=== PATIENT | male | born 1940 | race Caucasian/White ===

== ENCOUNTER 2017-06-14 11:14 | Emergency (ER) | payer MEDICARE, OTHER ==
[2017-06-14] MEDS ORDERED: Isosorbide Mononitrate 30 MG Tab.ER PO SCH (13:00)
[2017-06-14 13:04] VITALS: BP 153/42
--- NOTE | 2017-06-15 13:19 | CR ---
INDICATION: Chest pain. CHEST: A single AP upright portable view of the chest was obtained 06/14/2017 and compared with 03/13/2016, revealing the heart to appear somewhat prominent in size, but not grossly enlarged. The aorta is calcified in the arch area. Overlying EKG leads are noted. The lungs appear to be somewhat hyperaerated, suggesting the possibility of osteoporosis - correlate clinically. An active infiltrate or effusion was not identified. Dextroconvex scoliosis of moderate degree is noted, appearing slightly more prominent. IMPRESSION: No acute process. Multiple findings as noted above. MTDD
--- NOTE | 2017-06-16 10:24 | ER ---
DATE SEEN: 06/14/2017 TIME SEEN: The patient was seen at 1130 hours. CHIEF COMPLAINT: Chest pain. 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 It was "hard pain", "pushing pain". "It was not a pain." Associated with shortness of breath, he gets dyspnea on walking one quarter mile. He still smokes half a pack of cigarettes a day, and he has a baseline cough associated with this. He is allergic to lisinopril but takes an JANINA receptor josephine satisfactorily. The patient denies pain presently. Pain was 8/10 in intensity at home, which relented after less than half hour. CURRENT MEDICATIONS: 1. Lipitor 10 mg at bedtime. 2. Amlodipine 2.5 mg daily. 3. Losartan 100 mg at bedtime. 4. Cholecalciferol vitamin D 5000 units daily. 5. Acetaminophen and hydrocodone 325/5. ALLERGIES: Lisinopril. FAMILY HISTORY: Mother age 87 with a myocardial infarction. Father age 58 with hepatitis. Brother of lymphoma at age 60. Sister alive and well. Another sister has cancer of the liver, and I believe she is still living. REVIEW OF SYSTEMS: Negative, except for the chest pain noted above. Denies headache, neck stiffness, sore throat, recent fevers. His cough is unchanged. CARDIORESPIRATORY: As above. Denies syncope near syncope, palpitations, abdominal pain, nausea, vomiting, diaphoresis. Denies blood in his stool, black tarry stool, diarrhea, constipation. Prostatism, he has mild prostatism, has nocturia x2. Otherwise stable. No previous prostate surgery. EXTREMITIES: Without abnormality. No arthritis. No decreased muscle strength. NEURO: Negative for seizure, head injury, or headaches. PHYSICAL EXAMINATION: VITAL SIGNS: Blood pressure 190/51, this was repeated 153/42; heart rate 63 and regular; respirations 18; oxygen saturation 99%. The patient's BMI is 21.1 kg/m2, 67.132 kg. GENERAL: Edentulous, unshaven, pleasant fellow with 40+ pack year cigarette use in his lifetime and loss of angularity in his jaw because of jaw recession with the absence of teeth. He is alert and not complaining of chest pain. No diaphoresis. HEENT: TMs negative. Hearing decreased. PERRLA intact. Pharynx without abnormality, except for absent teeth. NECK: No thyromegaly, masses, or bruits. No tenderness. LUNGS: Clear to auscultation except for the bases few rales. HEART: S1, S2. No murmur. No irregular rate and rhythm. ABDOMEN: Soft. No guarding. No abdominal discomfort. Bowel sounds normal. No CVA percussion discomfort. BACK: Minimal spinous process tenderness in the lumbar spine. EXTREMITIES: Straight leg raise is negative. Deep tendon reflexes, knee jerks and ankle jerks 1+ active. NEUROLOGICAL: Cranial nerves 2 through 12 intact. LABORATORY DATA: Troponin was performed as well as other lab work and troponin was less than 0.01. D-dimer was slightly elevated, but not elevated for his age. By "Rule of Ten" normal could be 750, and his D-dimer is 572. Sodium is 134, potassium 4.9, chloride 107, bicarb is 19, BUN 33, creatinine 1.8. GFR is 42. BUN and creatinine ratio show slight suggestion of dehydration at 20.6. Hemoglobin is 10.2 and white count 8000, PMNs 66, lymphocytes 24, monos 7. Platelets 222,000. DIAGNOSTIC DATA: Chest x-ray, chronic obstructive lung disease. No pneumonia. No infiltrate noted. No cardiomegaly. EKG, occasional PACs (probably secondary to smoking, chronic obstructive lung disease). No arrhythmias, no ST elevation, no ST changes. ASSESSMENT: 1. Stable angina. 2. Smoking abuse. PLAN: Dismissed. Follow up with doctor in a week. Start Imdur 30 mg daily. No changes in his activity. Discontinue smoking. He is given NicoDerm patch, Chantix take daily plus Nicorette tic tac - greater rate of abstinence together than if only one taken. He is to take one before getting out of bed in the morning. /[id number] 2003 JANICE/CHIO SALDIVARD
== END 2017-06-14 13:00 | disposition home or self-care (01) ==
LOC: FB.ED 11:14
DX: I20.8 Other forms of angina pectoris (principal); F17.210 Nicotine dependence, cigarettes, uncomplicated; Z79.899 Other long term (current) drug therapy; Z88.8 Allergy status to other drugs, medicaments and biological substances
CPT/HCPCS: 36415; 71010; 80053; 82550; 84484; 85025; 85379; 93005; 99285; A9270; 99284

== ENCOUNTER 2018-01-20 23:22 | Emergency (ER) | payer MEDICARE, OTHER ==
[2018-01-20] MEDS ORDERED: Morphine 2 MG/ML Syringe IVPUSH ONE (23:37)
[2018-01-20] MEDS ORDERED: Morphine 10 MG/ML Syringe IVPUSH ONE (23:41)
--- NOTE | 2018-01-20 23:42 | EDM.PDOC ---
ED HPI GENERAL MEDICAL PROBLEM - General Chief Complaint: Abdominal Pain Stated Complaint: ABD PAIN Time Seen by Provider: 01/20/18 23:37 Source of Information: Reports: Patient History Limitations: Reports: No Limitations - History of Present Illness Onset: Today Duration: Hour(s): (2) Location: Reports: Abdomen Quality: Reports: Ache Severity: Moderate Improves with: Reports: None Worsens with: Reports: None Associated Symptoms: Reports: No Other Symptoms lower abdomen Pain Score (Numeric/FACES): 10 - Related Data Allergies Allergy/AdvReac Type Severity Reaction Status Date / Time hydrocodone Allergy Vomiting Verified 01/21/18 00:29 tramadol Allergy Vomiting Verified 01/21/18 00:27 lisinopril AdvReac Vomiting Verified 01/21/18 00:29 Home Meds: Home Meds Aspirin 81 mg PO BEDTIME 03/12/16 [History] Losartan [Cozaar] 100 mg PO DAILY 03/12/16 [History] atorvaSTATin [Lipitor] 40 mg PO DAILY 03/12/16 [History] Cholecalciferol (Vitamin D3) [Vitamin D3] 5,000 unit PO DAILY 08/28/16 [History] amLODIPine [Norvasc] 2.5 mg PO BEDTIME 08/28/16 [History] Nicotine Polacrilex [Nicorette] 4 mg BC ASDIRECTED #100 gum 06/14/17 [Rx] Metoprolol Succinate [Toprol XL] 25 mg PO DAILY 01/21/18 [History] Past Medical History HEENT History: Reports: Impaired Vision Other HEENT History: waers glasses Cardiovascular History: Reports: Bypass, Hypertension, Other (See Below) ( Aortic stenosis) Other Cardiovascular History: BILAT CAROTID ARTERY STENOSIS Gastrointestinal History: Reports: Pancreatitis Genitourinary History: Reports: Other (See Below) Other Genitourinary History: slow to start stream at times Musculoskeletal History: Reports: Fracture Neurological History: Reports: Concussion Oncologic (Cancer) History: Reports: Malignant Melanoma Dermatologic History: Reports: Melanoma Other Dermatologic History: MELANOMA TO EAR - Infectious Disease History Infectious Disease History: Reports: Chicken Pox, Measles, Mumps, Shingles - Past Surgical History HEENT Surgical History: Reports: Oral Surgery Cardiovascular Surgical History: Reports: Coronary Artery Bypass GI Surgical History: Reports: Appendectomy, Hernia, Inguinal, Hernia Repair/ Other Neurological Surgical History: Reports: None Dermatological Surgical History: Reports: Other (See Below) Social & Family History - Family History Family Medical History: Noncontributory Cardiac: Reports: [place] (mother) GI: Reports: Hepatitis (father) Oncologic: Reports: Colon (sister), Lymphoma (brother) - Tobacco Use Smoking Status *Q: Current Every Day Smoker Tobacco Use Within Last Twelve Months: Cigarettes - Caffeine Use Caffeine Use: Reports: Coffee - Alcohol Use Alcohol Use History: No Alcohol Use in Last Twelve Months: No ED ROS GENERAL - Review of Systems Review Of Systems: See Below Constitutional: Reports: No Symptoms HEENT: Reports: No Symptoms Respiratory: Reports: No Symptoms Cardiovascular: Reports: No Symptoms Endocrine: Reports: No Symptoms GI/Abdominal: Reports: Abdominal Pain (lower). Denies: Black Stool, Bloody Stool, Constipation, Diarrhea, Distension, Hematemesis, Hematochezia, Melena, Nausea, Vomiting : Reports: No Symptoms Musculoskeletal: Reports: No Symptoms Skin: Reports: No Symptoms Neurological: Reports: No Symptoms Psychiatric: Reports: No Symptoms Hematologic/Lymphatic: Reports: No Symptoms Immunologic: Reports: No Symptoms ED EXAM, GI/ABD - Physical Exam Exam: See Below Exam Limited By: No Limitations General Appearance: Alert, WD/WN, No Apparent Distress Ears: Normal External Exam Throat/Mouth: No Airway Compromise Head: Atraumatic, Normocephalic Neck: Normal Inspection Respiratory/Chest: No Respiratory Distress, Lungs Clear, Normal Breath Sounds Cardiovascular: Regular Rate, Rhythm, No Edema, Systolic Murmur (3/6) GI/Abdominal Exam: Normal Bowel Sounds, Soft, No Organomegaly, No Distention, No Mass, Tender (suprapubic) Rectal (Males) Exam: Deferred Extremities: Normal Range of Motion Neurological: Alert, Oriented, Normal Cognition, Normal Gait Psychiatric: Normal Affect Skin Exam: Warm, Dry, Intact, Normal Color, No Rash Course - Vital Signs Last Recorded V/S: Last Vital Signs Temp 36.9 C 01/20/18 23:25 Pulse 61 01/20/18 23:25 Resp 16 01/20/18 23:25 BP 156/45 H 01/20/18 23:25 Pulse Ox 100 01/20/18 23:25 - Orders/Labs/Meds Orders: Active Orders 24 hr Category Date Time Status Abdomen Pelvis wo Cont [CT] Stat Exams 01/21/18 01:00 Taken UA W/MICROSCOPIC [URIN] Stat Lab 01/21/18 01:20 Ordered Sodium Chloride 0.9% [Normal Saline] 1,000 ml Med 01/20/18 23:45 Active IV ASDIRECTED Medication Orders Sodium Chloride (Normal Saline) 1,000 mls @ 100 mls/hr IV ASDIRECTED INES Last Admin: 01/20/18 23:55 Dose: 100 mls/hr Labs: Laboratory Tests 01/20/18 01/20/18 01/21/18 Range/Units 23:52 23:52 01:20 WBC 9.5 (4.5-12.0) X10-3/uL RBC 2.82 L (4.30-5.75) x10(6)uL Hgb 9.1 L (11.5-15.5) g/dL Hct 27.3 L (30.0-51.3) % MCV 96.7 H (80-96) fL MCH 32.3 (27.7-33.6) pg MCHC 33.4 (32.2-35.4) g/dL RDW 14.6 (11.5-15.5) % Plt Count 168 (125-369) X10(3)uL MPV 8.6 (7.4-10.4) fL Neut % (Auto) 71.9 (46-82) % Lymph % (Auto) 16.3 (13-37) % [place] % (Auto) 8.9 (4-12) % Eos % (Auto) 2 (1.0-5.0) % Baso % (Auto) 1 (0-2) % Neut # (Auto) 6.8 (1.6-8.3) # Lymph # (Auto) 1.6 (0.6-5.0) # [place] # (Auto) 0.8 (0.0-1.3) # Eos # (Auto) 0.2 (0.0-0.8) # Baso # (Auto) 0.1 (0.0-0.2) # Sodium 139 (135-145) mmol/L Potassium 5.2 (3.5-5.3) mmol/L Chloride 107 (100-110) mmol/L Carbon Dioxide 19 L (21-32) mmol/L BUN 34 H (7-18) mg/dL Creatinine 1.5 H (0.70-1.30) mg/dL Est Cr Clr Drug Dosing TNP Estimated GFR (MDRD) 46 L (>60) BUN/Creatinine Ratio 22.7 H (9-20) Glucose 110 (80-116) mg/dL Calcium 8.7 (8.6-10.2) mg/dL Total Bilirubin 0.4 (0.1-1.3) mg/dL AST 19 (5-25) IU/L ALT 30 (12-36) U/L Alkaline Phosphatase 86 (56-112) IU/L Total Protein 7.0 (6.0-8.0) g/dL Albumin 3.5 (3.2-4.6) g/dL Globulin 3.5 g/dL Albumin/Globulin Ratio 1.0 Urine Color Yellow (YELLOW) Urine Appearance Clear (CLEAR) Urine pH 5.0 (5.0-6.5) Ur Specific [place] 1.020 (1.010-1.025) Urine Protein 30 H (NEGATIVE) mg/dL Urine Glucose (UA) Normal (NEGATIVE) mg/dL Urine Ketones Negative (NEGATIVE) mg/dL Urine Occult Blood Negative (NEGATIVE) Urine Nitrite Negative (NEGATIVE) Urine Bilirubin Negative (NEGATIVE) Urine Urobilinogen Normal (NEGATIVE) mg/dL Ur Leukocyte Esterase Negative (NEGATIVE) Urine RBC 0-5 (0) Urine WBC 0-5 (0) Ur Squamous Epith Cells Occasional (NS,R,O) Urine Bacteria Few H (NS) Meds: Medications Generic Name Dose Route Start Last Admin Trade Name Freq PRN Reason Stop Dose Admin Sodium Chloride 1,000 mls @ 100 mls/hr 01/20/18 23:45 01/20/18 23:55 Normal Saline IV 100 mls/hr ASDIRECTED INES Administration Discontinued Medications Generic Name Dose Route Start Last Admin Trade Name Freq PRN Reason Stop Dose Admin Iopamidol 75 ml 01/21/18 00:46 01/21/18 01:07 Isovue-370 (76%) IV 01/21/18 00:47 Not Given ONETIME ONE Morphine Sulfate 2 mg 01/20/18 23:37 01/21/18 00:06 Morphine IVPUSH 01/20/18 23:38 Not Given ONETIME ONE Morphine Sulfate 2 mg 01/20/18 23:41 01/21/18 00:05 Morphine IVPUSH 01/20/18 23:42 2 mg ONETIME ONE Administration - Radiology Interpretation Free Text/Narrative:: CT Abd/Pelvis w/o contrast: Vhrjyjaw-rl-eofgt amount stool present throughout colon. Moderate enlargement of prostate. Chronic pancreatitis. Right adrenal nodule. - Re-Assessments/Exams Free Text/Narrative Re-Assessment/Exam: 01/21/18 02:08 Pain has improved Departure - Departure Time of Disposition: 02:10 Disposition: Home, Self-Care 01 Condition: Good Clinical Impression: Constipation, Macrocytic anemia - Discharge Information Instructions: Constipation, Adult, Anemia Referrals: Nickolas Matute MD [Primary Care Provider] - Forms: ED Department Discharge Additional Instructions: OTC Stool softners. Increase fiber intake. Follow up with your primary physician in 2 days. - Problem List & Annotations (1) Anemia SNOMED Code(s): 387365379 Code(s): D64.9 - ANEMIA, UNSPECIFIED Status: Chronic Current Visit: No Annotation/Comment:: Macrocytic. Follow up with PCP Qualifiers: Anemia type: unspecified type Qualified Code(s): D64.9 - Anemia, unspecified (2) Constipation SNOMED Code(s): 76511117 Code(s): K59.00 - CONSTIPATION, UNSPECIFIED Status: Acute Current Visit: Yes Annotation/Comment:: OTC Stool Softners, increase fiber Qualifiers: Constipation type: unspecified constipation type Qualified Code(s): K59.00 - Constipation, unspecified - Problem List Review Problem List Initiated/Reviewed/Updated: Yes - My Orders Last 24 Hours: My Active Orders 01/20/18 23:45 Sodium Chloride 0.9% [Normal Saline] 1,000 ml IV ASDIRECTED 01/21/18 01:00 Abdomen Pelvis wo Cont [CT] Stat 01/21/18 01:20 UA W/MICROSCOPIC [URIN] Stat - Assessment/Plan Last 24 Hours: My Active Orders 01/20/18 23:45 Sodium Chloride 0.9% [Normal Saline] 1,000 ml IV ASDIRECTED 01/21/18 01:00 Abdomen Pelvis wo Cont [CT] Stat 01/21/18 01:20 UA W/MICROSCOPIC [URIN] Stat
[2018-01-20] MEDS ORDERED: Sodium Chloride 0.9% 1,000 ML IV SCH (23:45)
[2018-01-21] MEDS ORDERED: Iopamidol 755 Mg/ML 75 ML Bottle IV ONE (00:46)
[2018-01-21 03:21] VITALS: BP 165/52
== END 2018-01-21 03:11 | disposition home or self-care (01) ==
LOC: FB.ED 23:22
DX: K59.00 Constipation, unspecified (principal); D53.9 Nutritional anemia, unspecified; F17.210 Nicotine dependence, cigarettes, uncomplicated; Z88.8 Allergy status to other drugs, medicaments and biological substances; Z79.899 Other long term (current) drug therapy
CPT/HCPCS: 36415; 74176; 80053; 81001; 85025; 96361; 96374; 99284; J2270; J7040

== ENCOUNTER 2020-10-11 09:20 | Day surgery (SDC) | payer MEDICARE, OTHER ==
[~2020-10-11 09:20] MED LIST: Lactated Ringers 1,000 ML IV SCH; Sodium Chloride 0.9% 10 ML Syringe FLUSH PRN
[2020-10-11] MEDS ORDERED: Propofol 200 MG/20 ML SDV IV ONE (09:21)
[2020-10-11] MEDS ORDERED: Lidocaine 2% 100 MG/5 ML Syringe IVPUSH ONE (09:21)
[2020-10-11] MEDS ORDERED: Lactated Ringers 1,000 ML IV SCH (10:00)
[2020-10-11] MEDS ORDERED: Sodium Chloride 0.9% 10 ML Syringe FLUSH PRN (10:00)
--- NOTE | 2020-10-11 11:51 | PCM.OPNOTE ---
- General Post-Op/Procedure Note Date of Surgery/Procedure: 10/11/20 Operative Procedure(s): egd with bx. attempt at c scope Findings: hemorrhagic gastritis hiatal hernia poor prep copious amount so liquid stool in rectal vault. Pre Op Diagnosis: anemia occult blood in stools Post-Op Diagnosis: gastritis hemorrhagic Anesthesia Technique: GLORIA Primary Surgeon: Sarwat Salazar Anesthesia Provider: Heidi Holloway Pathology: stomach Complications: None Condition: Good Free Text/Narrative:: see dictation [id number]
--- NOTE | 2020-10-11 14:25 | OR ---
DATE OF OPERATION: 10/11/2020 SURGEON: Sarwat Salazar MD PROCEDURE PERFORMED: EGD with cold forceps biopsy and attempted colonoscopy. PREOPERATIVE DIAGNOSIS: Anemia with occult blood in stools. POSTOPERATIVE DIAGNOSIS: Hemorrhagic gastritis and poor colon prep. INDICATIONS FOR PROCEDURE: Mr. Valencia is a 80-year-old white male who was recently noted to have an anemia. He has occult blood in stool, had some epigastric abdominal pain. He was offered and accepted an upper and lower endoscopy. DESCRIPTION OF PROCEDURE: After an excellent IV sedation was administered, the bite block was inserted. The flexible endoscope was passed without difficulty down the patient's esophagus into the stomach. Stomach was insufflated. Scope passed through the pylorus to the second portion of the duodenum and slowly withdrawn. The following findings were noted: Duodenum was unremarkable. Stomach demonstrated diffuse punctate hemorrhage throughout. Multiple biopsies were taken along the antrum as well as greater curve. On retroflexion of the scope, there was evidence of a hiatal hernia. GE junction measured at 45 cm. There was no evidence of any esophagitis. The stomach was deflated and scope was removed. Attention was then turned to the patient's colon. On digital rectal exam, there was copious amounts of thick liquid stool that was encountered on rectal exam. The flexible colonoscope was inserted and it was readily apparent on evaluating the rectal vault that the prep was inadequate as the entire colon was coated with thick fecal material with more pouring down more proximally. The procedure was then terminated, and he will be rescheduled for a followup scope from below. The scope was not advanced more than 5 cm. /[id number] /MODL
[2020-10-11 15:07] VITALS: BP 166/96; PULSE 56
== END 2020-10-11 12:58 | disposition home or self-care (01) ==
LOC: FB.SDS 09:20
PROVIDERS: ATTEND Surgery
DX: R19.5 Other fecal abnormalities (principal); D64.9 Anemia, unspecified; K44.9 Diaphragmatic hernia without obstruction or gangrene; K29.50 Unspecified chronic gastritis without bleeding; Z01.812 Encounter for preprocedural laboratory examination; Z20.822 Contact with and (suspected) exposure to COVID-19; E78.00 Pure hypercholesterolemia, unspecified; I25.10 Atherosclerotic heart disease of native coronary artery without angina pectoris; F17.210 Nicotine dependence, cigarettes, uncomplicated; I25.2 Old myocardial infarction; I12.9 Hypertensive chronic kidney disease with stage 1 through stage 4 chronic kidney disease, or unspecified chronic kidney disease; N18.30 Chronic kidney disease, stage 3 unspecified; Z88.8 Allergy status to other drugs, medicaments and biological substances; Z90.49 Acquired absence of other specified parts of digestive tract; Z88.5 Allergy status to narcotic agent; Z98.890 Other specified postprocedural states; Z79.899 Other long term (current) drug therapy
CPT/HCPCS: 00811-QZ; 88305; 88342; J2704; J7120; U0002

== ENCOUNTER 2021-01-17 15:56 | Emergency (ER) | payer MEDICARE, OTHER ==
--- NOTE | 2021-01-17 16:20 | EDM.PDOC ---
ED HPI GENERAL MEDICAL PROBLEM - General Time Seen by Provider: 01/17/21 16:00 Source of Information: Reports: Patient History Limitations: Reports: No Limitations - History of Present Illness INITIAL COMMENTS - FREE TEXT/NARRATIVE: c/o abd pain yesterday Dr Blas, urology, in [place] [facility] did surgery for bladder stones and prostate at 7a pt removed rivera at home as obstructed, he has had inc'd pain, not been able to void, and instructed to come to the ED he is on cephalexin as well as tamsulosin and finasteride he has not had a rivera in the past he says he has an enlarged prostate, not sure of the procedure done by Dr Blas he spoke with office of Dr Blas who told him to come to the ED has CKD4 SH: here with - Related Data Allergies Allergy/AdvReac Type Severity Reaction Status Date / Time hydrocodone Allergy Nausea and Verified 10/11/20 09:45 Vomiting tramadol Allergy Nausea and Verified 10/11/20 09:45 Vomiting lisinopril AdvReac Cough Verified 10/11/20 09:45 Home Meds: Home Meds atorvaSTATin [Lipitor] 40 mg PO DAILY 03/12/16 [History] amLODIPine [Norvasc] 5 mg PO BEDTIME 08/28/16 [History] Metoprolol Succinate [Toprol XL] 25 mg PO BEDTIME 01/21/18 [History] Clopidogrel [Plavix] 75 mg PO DAILY 10/09/20 [History] Ferrous Sulfate [Iron] 325 mg PO BID 10/09/20 [History] Finasteride [Proscar] 5 mg PO DAILY 10/09/20 [History] Nitroglycerin [Nitrostat] 0.4 mg SL Q5M PRN 10/09/20 [History] Tamsulosin [Flomax] 0.4 mg PO DAILY 10/09/20 [History] calcitrioL [Calcitriol] 0.25 mcg PO DAILY 10/09/20 [History] Past Medical History HEENT History: Reports: Impaired Vision Cardiovascular History: Reports: Bypass, High Cholesterol, Hypertension, Other (See Below) Other Cardiovascular History: BILAT CAROTID ARTERY STENOSIS. CORONARY ATHEROSCLEROSIS. L CAROTID BRUIT. NSTEMI. MITRAL REGURG. AORITC VALVE STEN OSIS. SEVERE AORTIC STENOSIS. HYPERKALEMIA Respiratory History: Reports: Other (See Below) Other Respiratory History: CIGARETTE SMOKER Gastrointestinal History: Reports: GERD, Pancreatitis Genitourinary History: Reports: Prostate Disorder, Retention, Urinary, Other (See Below) Other Genitourinary History: slow to start stream at times. L HYDROCELE. PYURIA. UTI. STAGE 3 CKD. BLADDER STONES Musculoskeletal History: Reports: Fracture Neurological History: Reports: Concussion Psychiatric History: Reports: None Endocrine/Metabolic History: Reports: Hyperparathyroidism Hematologic History: Reports: Anemia, Anticoagulation Therapy Immunologic History: Reports: None Oncologic (Cancer) History: Reports: Malignant Melanoma Dermatologic History: Reports: Melanoma Other Dermatologic History: MELANOMA TO EAR - Infectious Disease History Infectious Disease History: Reports: Chicken Pox, Measles, Mumps, Shingles - Past Surgical History Head Surgeries/Procedures: Reports: None HEENT Surgical History: Reports: Oral Surgery Cardiovascular Surgical History: Reports: Coronary Artery Bypass, Coronary Artery Stent Other Cardiovascular Surgeries/Procedures: CABG 2003. CARDIAC CATH 08/24/17 AND 12/25/17. PERCUTANEOUS SUBCLAVIAN TRANSCATHERTER AORTIC VALVE IMPLANTATION 03/18/18 Respiratory Surgical History: Reports: None GI Surgical History: Reports: Appendectomy, Hernia, Inguinal, Hernia Repair/Other Male Surgical History: Reports: None Endocrine Surgical History: Reports: None Neurological Surgical History: Reports: None Musculoskeletal Surgical History: Reports: ORIF, Other (See Below) Other Musculoskeletal Surgeries/Procedures:: R LEG ORIF. TENDON REPAIR TRANSFER R 3RD FINGER 04/05/20 Oncologic Surgical History: Reports: None Dermatological Surgical History: Reports: Other (See Below) Social & Family History - Family History Family Medical History: No Pertinent Family History Cardiac: Reports: [place] (mother) GI: Reports: Hepatitis (father) Oncologic: Reports: Colon (sister), Lymphoma (brother) - Caffeine Use Caffeine Use: Reports: Coffee, Soda ED ROS GENERAL - Review of Systems Review Of Systems: See Below Constitutional: Reports: No Symptoms HEENT: Reports: No Symptoms Respiratory: Reports: No Symptoms Cardiovascular: Reports: No Symptoms Endocrine: Reports: No Symptoms GI/Abdominal: Reports: Abdominal Pain. Denies: Nausea, Vomiting : Reports: Urinary Retention Musculoskeletal: Reports: No Symptoms Skin: Reports: No Symptoms Neurological: Reports: No Symptoms Psychiatric: Reports: No Symptoms Hematologic/Lymphatic: Reports: No Symptoms Immunologic: Reports: No Symptoms ED EXAM, RENAL/ - Physical Exam Exam: See Below Exam Limited By: No Limitations General Appearance: Alert, WD/WN, No Apparent Distress Nose: Normal Inspection Head: Atraumatic Neck: Normal Inspection. No: Lymphadenopathy (R), Lymphadenopathy (L) Respiratory/Chest: No Respiratory Distress, Lungs Clear Cardiovascular: Other (PMI at AAL with 1+ heave, 2/6 TERI at LSB) GI/Abdominal: Soft, Other (distention, >600 ml urine on bladder scanner, palpable bladder with 1+ tender). No: Guarding, Rigid, Rebound Back Exam: Normal Inspection Extremities: Normal Inspection, Normal Range of Motion, No Pedal Edema Neurological: Alert, Oriented, CN II-XII Intact, Normal Cognition, No Motor/Sensory Deficits Psychiatric: Normal Affect, Normal Mood Skin Exam: Warm, Dry, Intact, Normal Color, No Rash Lymphatic: No Adenopathy Course - Orders/Labs/Meds Meds: Medications Discontinued Medications Generic Name Dose Route Start Last Admin Trade Name Freq PRN Reason Stop Dose Admin Lidocaine HCl 6 ml 01/17/21 16:22 Lidocaine 2% Hcl 6 Ml Jel.Pf.[email or web address] .XX 01/17/21 16:23 ONETIME ONE - Re-Assessments/Exams Free Text/Narrative Re-Assessment/Exam: 01/17/21 17:06 rivera replaced, nearly 800 ml tea colored urine without clots obtained, felt better u/a not obtained as it was checked yesterday, pt is already on cephalexin, u/a would show numerous RBC and neither dip or micro would be helpful pt and understand that they can return anytime Departure - Departure Time of Disposition: 17:04 Disposition: Home, Self-Care 01 Condition: Good Clinical Impression: Urinary obstruction - Discharge Information *PRESCRIPTION DRUG MONITORING PROGRAM REVIEWED*: Not Applicable *COPY OF PRESCRIPTION DRUG MONITORING REPORT IN PATIENT LORENA: Not Applicable Instructions: Indwelling Urinary Catheter Care, Adult Additional Instructions: Contact Dr Blas tomorrow for additional instructions. Return to Emergency Department at any time if you are feeling worse.
[2021-01-17] MEDS ORDERED: Lidocaine 2% HCl 6 ML JEL.PF.APP ONE (16:22)
[2021-01-17 20:27] VITALS: BP 131/82; PULSE 57
== END 2021-01-17 17:50 | disposition home or self-care (01) ==
LOC: FB.ED 15:56
DX: N13.9 Obstructive and reflux uropathy, unspecified (principal); E78.00 Pure hypercholesterolemia, unspecified; I10 Essential (primary) hypertension; I25.2 Old myocardial infarction; Z88.5 Allergy status to narcotic agent; Z88.8 Allergy status to other drugs, medicaments and biological substances; Z88.6 Allergy status to analgesic agent; Z79.899 Other long term (current) drug therapy; Z95.1 Presence of aortocoronary bypass graft
CPT/HCPCS: 51702; 99283; A9270-GY

== ENCOUNTER → 2021-11-22 | Day surgery (SDC) | payer MEDICARE, OTHER ==
[~2021-11-22] MED LIST changes: +Glycopyrrolate 0.2 MG/ML 5 ML MDV IV ONE; +Lidocaine 2% 5 ML SDV INJECT ONE; +Propofol 200 MG/20 ML SDV IV ONE
[2021-11-22] MEDS: Lactated Ringers 1,000 ML IV SCH (08:55)
[2021-11-22 14:21] VITALS: BP 178/66; PULSE 71
== END | disposition home or self-care (01) ==
LOC: FB.SDS 08:13
PROVIDERS: ATTEND Surgery
DX: K29.50 Unspecified chronic gastritis without bleeding (principal); R13.10 Dysphagia, unspecified; T18.108A Unspecified foreign body in esophagus causing other injury, initial encounter; I25.10 Atherosclerotic heart disease of native coronary artery without angina pectoris; N18.9 Chronic kidney disease, unspecified; I13.0 Hypertensive heart and chronic kidney disease with heart failure and stage 1 through stage 4 chronic kidney disease, or unspecified chronic kidney disease; E78.00 Pure hypercholesterolemia, unspecified; I50.9 Heart failure, unspecified; I25.2 Old myocardial infarction; F17.210 Nicotine dependence, cigarettes, uncomplicated; Z79.899 Other long term (current) drug therapy; Z88.8 Allergy status to other drugs, medicaments and biological substances; Z88.5 Allergy status to narcotic agent; Z90.49 Acquired absence of other specified parts of digestive tract; Z98.890 Other specified postprocedural states
CPT/HCPCS: 00731-QZ; 36415; 84132; 88305; 88342; J2704; J3490; J7120

== ENCOUNTER 2022-02-05 17:11 | Emergency (ER) | payer MEDICARE, OTHER ==
[2022-02-05 18:37] VITALS: BP 190/63; PULSE 58
[2022-02-05] MEDS ORDERED: Tranexamic Acid 1,000 MG in Sodium Chloride 0.9% 50 ML IV ONE (18:48)
[2022-02-05] MEDS ORDERED: Sodium Chloride 0.9% 10 ML Syringe FLUSH PRN (18:48)
[2022-02-05] MEDS ORDERED: Diphtheria,Pertussis(Acell),Tetanus Vaccine 0.5 ML Syringe IM ONE (19:19)
== END 2022-02-05 20:30 | disposition home or self-care (01) ==
LOC: FB.ED 17:11
DX: S51.812A Laceration without foreign body of left forearm, initial encounter (principal); E78.00 Pure hypercholesterolemia, unspecified; I12.9 Hypertensive chronic kidney disease with stage 1 through stage 4 chronic kidney disease, or unspecified chronic kidney disease; N18.9 Chronic kidney disease, unspecified; Z88.5 Allergy status to narcotic agent; Z88.8 Allergy status to other drugs, medicaments and biological substances; Z79.899 Other long term (current) drug therapy; Z95.1 Presence of aortocoronary bypass graft; Z23 Encounter for immunization; W18.09XA Striking against other object with subsequent fall, initial encounter
CPT/HCPCS: 29125; 73090-LT; 73110-LT; 90471; 96365; 99281; 99283-25; J3490

== ENCOUNTER 2022-05-20 14:46 | Observation (INO) | payer MEDICARE, OTHER ==
[2022-05-20] MEDS ORDERED: Sodium Chloride 0.9% 10 ML Syringe FLUSH PRN (15:07)
[2022-05-20 15:38] LABS: ESTIMATED GFR 25 mL/min (>60)
[2022-05-20] MEDS ORDERED: Ondansetron 4 MG/2 ML SDV IVPUSH ONE (15:40)
[2022-05-20] MEDS: Sodium Chloride 0.9% 1,000 ML IV SCH (16:00)
[2022-05-20] MEDS ORDERED: Ondansetron 4 MG/2 ML SDV IV PRN (18:00)
[2022-05-20] MEDS ORDERED: Pantoprazole 40 MG Vial IVPUSH ONE (18:51)
[2022-05-20] MEDS ORDERED: Non-Formulary Medication 1 Each (Omeprazole [Omeprazole] 20 MG Cap.Cr) PO SCH (21:00)
[2022-05-20] MEDS ORDERED: FINASTERIDE 5 MG PO SCH (21:00)
[2022-05-20] MEDS ORDERED: Metoprolol Succinate 25 MG Tab.ER *PT OWN MED PO SCH (21:00)
[2022-05-21] MEDS: Sodium Chloride 0.9% 1,000 ML IV SCH ×3 (02:14→22:29)
[2022-05-21 06:45] LABS: ESTIMATED GFR 28 mL/min (>60)
[2022-05-21] MEDS: Polyethylene Glycol 3350 Powder 17 GM Packet PO SCH ×4 (11:46→20:04)
[2022-05-21] MEDS: Heparin Sodium 5,000 Units/ML Vial SUBCUT SCH ×2 (13:07→22:26)
[2022-05-21] MEDS ORDERED: FINASTERIDE 5 MG PO SCH (21:00)
[2022-05-21] MEDS ORDERED: Metoprolol Succinate 50 MG Tab.ER PO SCH (21:00)
[2022-05-22 06:48] LABS: ESTIMATED GFR 30 mL/min (>60)
[2022-05-22 08:14] VITALS: BP 144/62; PULSE 61
[2022-05-22] MEDS: Polyethylene Glycol 3350 Powder 17 GM Packet PO SCH (08:25)
== END 2022-05-22 10:25 | disposition home or self-care (01) ==
LOC: FB.ED 14:46 → FB.MS 18:00
PROVIDERS: ADMIT Family Medicine; ATTEND Family Medicine
DX: E86.0 Dehydration (principal); I12.9 Hypertensive chronic kidney disease with stage 1 through stage 4 chronic kidney disease, or unspecified chronic kidney disease; R63.4 Abnormal weight loss; K59.00 Constipation, unspecified; R79.89 Other specified abnormal findings of blood chemistry; D64.9 Anemia, unspecified; E78.00 Pure hypercholesterolemia, unspecified; I25.2 Old myocardial infarction; I25.10 Atherosclerotic heart disease of native coronary artery without angina pectoris; F17.210 Nicotine dependence, cigarettes, uncomplicated; Z20.822 Contact with and (suspected) exposure to COVID-19; Z98.890 Other specified postprocedural states; Z88.5 Allergy status to narcotic agent; Z88.8 Allergy status to other drugs, medicaments and biological substances; Z79.899 Other long term (current) drug therapy; Z79.82 Long term (current) use of aspirin
CPT/HCPCS: 36415; 71045; 74176; 80048; 80053; 81001; 83880; 84443; 84484; 85025; 85379; 85610; 85730; 93005; 96361; 96372; 96374; 96375; 99285; A9270; C9113; G0378; J1644; J2405; J3490; J7030; U0002